=== PATIENT | female | born 1995 | race Hispanic/Latino ===

== ENCOUNTER 2022-11-19 21:45 | Emergency (ER) | payer SELFPAY ==
[~2022-11-19] VITALS: Ht 154.9 cm; Wt 100.0 kg
[2022-11-19 21:52] VITALS: BP 156/89
[2022-11-19 22:01] VITALS: BP 113/75
[2022-11-19 22:21] LABS: BASO% 0.2 % (0-3); EOS% 12.1 % (0-8); HEMATOCRIT 39.6 % (37.0-47.0); HEMOGLOBIN 12.1 g/dl (12.0-16.0); IMMATURE GRANULOCYTES 0.2 % (0.0-5.0); LYMPH% 49.3 % (15-41); MEAN CELL VOLUME 80.2 fL CALC (80.0-100.0); MEAN CORPUSCULAR HGB 24.5 pG CALC (26.0-32.0); MEAN CORPUSCULAR HGB CONC 30.6 g/dL CAL (32.0-36.0); MONO% 15.5 % (2-13); NEUT# 1.2 thou/uL (2.00-7.15); NEUT% 22.7 % (42-76); RED BLOOD COUNT 4.94 mill/uL (4.20-5.60); RED CELL DISTRI WIDTH 15.3 % (11.5-15.5)
[2022-11-19] MEDS ORDERED: TAM75CAP PO (23:35)
[2022-11-19 23:51] VITALS: BP 113/75
== END 2022-11-20 00:01 | disposition home or self-care (01) | DRG 194 ==
LOC: ED 21:45
PROVIDERS: Family Medicine
DX: J10.1 Influenza due to other identified influenza virus with other respiratory manifestations (principal); D68.2 Hereditary deficiency of other clotting factors; J45.909 Unspecified asthma, uncomplicated; Z20.822 Contact with and (suspected) exposure to COVID-19